=== PATIENT | male | born 1960 | race Hispanic/Latino ===

== ENCOUNTER 2023-08-11 21:54 | Emergency (ER) | payer MEDICARE, OTHER, SELFPAY ==
[2023-08-11 21:58] VITALS: BP 135/84
[2023-08-11 22:18] LABS: % Basophils 0.8 % (0-2); % Eosinophils 4.2 % (0-6); % Immature Granulocytes 0.4 % (0-0.5); % Monocytes 11.9 % (1.7-9.3); % Neutrophils 50.7 % (42.2-75.2); Absolute Eosinophils 0.2 10^3/uL (0-0.7); Absolute Lymphocytes 1.7 10^3/uL (1.2-3.4); Absolute Monocytes 0.6 10^3/uL (0.1-0.6); Absolute Neutrophils 2.6 10^3/uL (1.4-6.5); Hematocrit 40.5 % (39.0-52.0); Hemoglobin 14.2 g/dL (13.0-18.0); Mean Corp Hgb Conc. 35.1 g/dL (33.0-37.0); Mean Corpuscular Hgb 29.2 pg (27.0-31.0); Mean Corpuscular Volume 83.3 fL (80.0-94.0); Nucleated Red Blood Cells % 0 % (-); Platelet Count 196 10^3/uL (130-400); Red Blood Cell Count 4.86 10^6/uL (4.70-6.10); Red Cell Dist. Width 12.5 % (11.5-14.5); White Blood Cell Count 5.2 10^3/uL (4.8-10.8)
[2023-08-11 22:40] LABS: ALT (SGPT) 29 U/L (0-50); AST (SGOT) 30 U/L (17-59); Albumin 3.8 g/dl (3.5-5.0); Alkaline Phosphatase 141 U/L (38-126); Blood Urea Nitrogen 16 mg/dl (9-20); Calcium 9.2 mg/dl (8.4-10.2); Carbon Dioxide 23 mmol/L (22-30); Chloride 109 mmol/L (98-107); Glucose 89 mg/dl (70-99); Sodium 137 mmol/L (135-145); Total Bilirubin 0.7 mg/dl (0.2-1.3); Total Protein 6.7 g/dl (6.3-8.2); eGFR > 60.00
[2023-08-11 22:44] LABS: Troponin I < 0.012 ng/ml
--- NOTE | 2023-08-11 23:55 | ED.GENMED ---
History of Present Illness
General
Chief Complaint: Head Injury
Source: patient
Time Seen by Provider: 08/11/23 23:39
Travel History
Have you had any contact with someone who has COVID-19?: No
Do you have any symptoms of coronavirus? Fever > 100 degrees, chills, cough, shortness of breath, sore throat, loss of taste or smell, muscle aches, or headache?: No
History of Present Illness
History of Present Illness:
This patient is a 62-year-old male presents emergency department with complaints of pain at the top of his head ever since he fell about a month ago. Patient states that he 'falls all the time', and his most recent fall was about a month ago. He
says he hit the top of his head and since that time he gets pain at the top of his head that 'comes and goes' without specific provoking or relieving factors every day. He also notes that he is tired and sometimes lightheaded. He is requesting a
CAT scan of his head to make sure everything is okay. He also notes consistent central chest discomfort for at least a month if not longer, difficult to describe the quality, without radiation, exacerbating or relieving factors. He denies
associated diaphoresis, back pain, neck pain, numbness, tingling, focal weakness, dyspnea, abdominal pain, or other complaints. Patient is eating and drinking as usual without nausea or vomiting, clumsiness, visual changes, or other complaints.
Past History
Past History
ED Past Medical History: GERD, Hypercholesterolemia, Psychiatric (Anxiety), Other ('Overactive bladder', chronic chest pain, Ulcers, Hernia) and Other (BPH)
ED Past Surgical History: Appendectomy and Urological (Dilatation of the opening form he bladder)
Social History
Tobacco: Non-smoker
Alcohol: None
Drug: None
Personal:
Living: with family
Employment: Other (Noncontributory)
Family History
Family History: Other (Noncontributory)
Phy Exam
Physical Exam
Physical Exam:
GENERAL: Alert , in no apparent distress
EYE: pupils equal and reactive
NECK: Supple, no significant adenopathy.
ENT: o/p clr, mmm.
CARDIAC: Regular rate and rhythm .
LUNGS: Clear breath sounds bilaterally, no acute respiratory distress, no wheezes/rales/rhonchi
ABDOMEN: Soft, without focal tenderness, no r/g, no cvat
NEUROLOGICAL: Alert and oriented, no focal neuro deficits, [id number] normal, cranial nerves II through XII intact, motor 5 out of 5, sensory intact
SKIN: Warm and dry, skin intact.
MUSCULOSKELETAL: No edema, well perfused.
PSYCH: Normal and appropriate interaction.
Course
Orders/Labs/Results
Orders:
Orders
08/11/23 22:02
Electrocardiogram (*1) Urgent
Reason for Study: Chest Pain
EKG- Treatment ONCE
08/11/23 22:03
CT Head W/o Iv Contrast Urgent
Comment: dizziness, lightheaded, balance issues
Reason For Exam: head injury 1 month ago, continued headaches
08/11/23 22:13
Complete Blood Count/With Diff Urgent
Comprehensive Metabolic Panel Urgent
Troponin I Urgent
Abnormal Lab Results
08/11/23
22:13
Monocytes % 11.9 H %
(1.7-9.3)
Chloride 109 H mmol/L
(98-107)
Creatinine 0.6 L mg/dL
(0.7-1.3)
Alkaline Phosphatase 141 H U/L
(38-126)
08/11/23 22:13
08/11/23 22:13
Vital Signs
Initial and Last Documented VS:
Initial Vital Signs
Temp Pulse Resp BP Pulse Ox
97.6 F 79 18 135/84 97
08/11/23 21:58 08/11/23 21:58 08/11/23 21:58 08/11/23 21:58 08/11/23 21:58
Last Documented Vital Signs
Temp Pulse Resp BP Pulse Ox
97.9 F 64 18 127/79 99
08/12/23 00:38 08/12/23 00:30 08/12/23 00:30 08/12/23 00:26 08/12/23 00:30
*Critical Care Note
Total Time (30-74mins, 75-104mins- exclusive of procedures): Not Applicable
Update Note
Update Note:
Patient presents to the Emergency Department with ___headache lightheadedness and chest pain
Number and Complexity of Problems Addressed at the Encounter
� Chronic conditions affecting care:
� Acute Exacerbation and/or Progression of Chronic Illness:
� Differential Diagnosis includes: But not limited to intracranial injury, concussion, ACS, etc. etc.
Amount and/or Complexity of Data to be Reviewed and Analyzed
� I performed an independent evaluation of and my interpretation is:
EKG: Read by me, normal sinus rhythm, incomplete right bundle branch block, no acute ischemia
CT:VISION READ no acute intracranial abnl, no infarct, hemorrhage, of shift. Mild microangiopathy.
Xrays:
Laboratory Studies: Unremarkable
Other:
� Review of other/old records reveals: Discharge summary from January 2022 reviewed at that time patient had left-sided facial and arm numbness and stroke and TIA ruled out. He has noted chronic intermittent sharp chest pain of
unclear etiology, and a history of falls.
� Clinical information was obtained by an independent historian:
� Prescriptions/Medications Considered but not given:
� Further testing considered but not performed:
Risk of Complications and/or Morbidity or Mortality of Patient Management
� Social determinants of health affecting care:
� Discussion with other providers (PCP, Hospitalists, Consultants, etc):
� Escalation of care including admission/observation vs risk of discharge considered:Pt comfortable, in nad, neuor intact. given chronic cp, unremarkable ecg and trop, do not recommend repeat trop.
ED Attending Note
-
Portions of this chart may have been created with voice recognition software.� Occasional wrong word or��sound alike� substitutions may have occurred due to the inherent limitations of voice recognition software.
Discharge Plan
Departure
Patient with high blood pressure during this ER visit?: Yes
Condition: Good
Discharge Problem:
Head injury
Instructions: Head Injury in Adults (DC), BLOOD PRESSURE
Prescriptions:
No Action
omeprazole 40 MG capsule,delayed release(DR/EC)
40 mg PO DAILY
gabapentin 300 MG capsule
300 mg PO BID
aspirin 81 MG tablet,chewable
81 mg PO DAILY
atorvastatin 10 MG tablet
10 mg PO QPM
Patient Comments:
Patient unsure of dose.
cyclosporine [Restasis] 10 DROPS dropperette
3 drp BOTH EYES BID
duloxetine 60 MG capsule,delayed release(DR/EC)
60 mg PO DAILY
quetiapine 25 mg Tablet
25 mg PO DAILY PRN (Reason: anxiety)
Referrals:
Chinedu Jennings MD [Family Provider] - Follow up in 2-3 days
Activity Restrictions/Additional Instructions:
IF YOU DEVELOP TROUBLE BREATHING, FEVER,VOMITNG, NUMBNESS, WEAKNESS, CHANGE IN VISION, SEVERE HEADACHE, OR OTHER WORRISOME SIGNS, GO TO THE ER IMMEDIATELY!
Interventions
Interventions:
*Risk Screen - Suicide Last Done: 08/11/23 21:58
*General Assessment Last Done: 08/11/23 21:58
*Neglect/Abuse Screening Last Done: 08/11/23 21:58
ED- Fall Risk Assessment Last Done: 08/12/23 00:18
ED- Cardiac Assessment Last Done: 08/12/23 00:18
ED- Neurological Assessment Last Done: 08/12/23 00:18
ED-Skin Assessment Last Done: 08/12/23 00:18
Discharge Date and Time
Print Language: CZECH
[2023-08-12 00:26] VITALS: BP 127/79
[2023-08-12 00:27] VITALS: BMI 29.5
[2023-08-12 02:01] VITALS: BP 148/88
== END 2023-08-12 02:00 | disposition home or self-care (01) ==
LOC: EMR 21:54
PROVIDERS: Emergency Medicine; EMERGENCY PHYSICIAN Emergency Medicine; FAMILY PHYSICIAN Internal Medicine
DX: S09.90XA Unspecified injury of head, initial encounter (principal); R42 Dizziness and giddiness; R07.89 Other chest pain; W19.XXXA Unspecified fall, initial encounter; R03.0 Elevated blood-pressure reading, without diagnosis of hypertension; E78.00 Pure hypercholesterolemia, unspecified; F41.9 Anxiety disorder, unspecified; N32.81 Overactive bladder; K21.9 Gastro-esophageal reflux disease without esophagitis; G89.29 Other chronic pain; N40.0 Benign prostatic hyperplasia without lower urinary tract symptoms; R51.9 Headache, unspecified; I45.10 Unspecified right bundle-branch block; Z79.82 Long term (current) use of aspirin
CPT/HCPCS: 99284; 70450; 80053; 84484; 85025; 93005

== ENCOUNTER 2023-10-23 20:37 | Emergency (ER) | payer MEDICARE, OTHER, SELFPAY ==
[2023-10-23 20:38] VITALS: BP 147/89
[2023-10-23] MEDS: ADACEL 0.5 ML IM (22:29)
--- NOTE | 2023-10-23 22:59 | ED.SKININJ ---
HPI-Injury
General
Chief Complaint: Skin Surface Trauma
Source: patient
Exam Limitations: none
Time Seen by Provider: 10/23/23 21:59
Nursing documentation reviewed up to this point in time: agreed with
History of Present Illness-Injury
Is this injury a work related problem?: No
Is pt an associate of [facility], [place]?: No
Initial Injury comments:
Tripped and fell. Hit left side of face on railing. No LOC. Small lac to left cheek. Swelling to left upper lip. Injury occured just [employer]. No dental injury.
Past History
Past History
ED Past Medical History: GERD, Hypercholesterolemia, Psychiatric (Anxiety), Other ('Overactive bladder', chronic chest pain, Ulcers, Hernia) and Other (BPH)
ED Past Surgical History: Appendectomy and Urological (Dilatation of the opening form he bladder)
Social History
Tobacco: Non-smoker
Alcohol: None
Drug: None
Personal:
Living: with family
Employment: Other (Noncontributory)
Family History
Family History: Other (Noncontributory)
Review of Systems
Review of Systems
Allergies reviewed?: Yes
All Other Systems: ROS reviewed and negative except as documented in HPI and ROS
Constitutional: Reports no symptoms
EENT: Reports other (swelling to left upper lip. No dental injury)
Respiratory: Reports no symptoms
Cardiac: Reports no symptoms
ABD/GI: Reports no symptoms
Skin: Reports other (laceration to left cheek)
Neurological: Reports no symptoms
Psychiatric: Reports no symptoms
Skin Exam
Laceration
Left Cheek:
Length in cm: 2
Orientation: vertical
Type of Laceration: simple
Any active bleeding?: no active bleeding
Distal skin color and temperature: normal-warm & good color
Normal distal neurovascular exam: Yes
Range of motion: full
Phy Exam
General Physical Exam
General Presentation: well appearing and no apparent distress
General age: appears stated age
General Skin: warm and dry
General Habitus: normal
General Mental: alert
General Hydration: appears well hydrated
ENT Exam
ENT Exam: neck supple and other (swelling to left upper lip. No dental injury)
[place] Coma Scale
Eye Opening: Spontaneous
Verbal Response: Oriented
Motor Response: Obeys Commands
GCS Total Score: 15
Musculoskeletal Exam
Musculoskeletal Exam: full ROM and neuro vasc intact
Skin Exam
Skin Exam: normal color, warm/dry and no rash
Psychiatric Exam
Psychiatric Exam: normal mood/affect
Course
Orders/Labs/Results
Orders:
Orders
10/23/23 22:20
Tetanus/Diphth/Acelpertussis [Adacel] 0.5 ml IM .ONCE ONE
Vital Signs
Initial and Last Documented VS:
Initial Vital Signs
Temp Pulse Resp BP Pulse Ox
98.2 F 79 18 147/89 96
10/23/23 20:38 10/23/23 20:38 10/23/23 20:38 10/23/23 20:38 10/23/23 20:38
Last Documented Vital Signs
Temp Pulse Resp BP Pulse Ox
98.2 F 79 18 147/89 96
10/23/23 20:38 10/23/23 20:38 10/23/23 20:38 10/23/23 20:38 10/23/23 20:38
Procedures
Laceration Closure
Left Cheek:
Status of Wound: clean
Description of Wound Edges: sharp
Preparation: cleaned with saline
Anesthesia: 1% Lidocaine with epi
Revision/Debridement: routine- no revision
Wound exploration: explored to base- no FB
Type of Closure: single layer closure
Skin Closure Material: 6-0 prolene
*Critical Care Note
Total Time (30-74mins, 75-104mins- exclusive of procedures): Not Applicable
ED Attending Note
-
Portions of this chart may have been created with voice recognition software.� Occasional wrong word or��sound alike� substitutions may have occurred due to the inherent limitations of voice recognition software.
Discharge Plan
Departure
Patient Disposition: Home (Routine Discharge)
Date of Disposition: 10/23/23
Time of Disposition: 22:21
Patient with high blood pressure during this ER visit?: No
Condition: Good
Covid-19: Not Applicable
Discharge Problem:
Face lacerations
Instructions: Laceration Repair With Stitches (DC), Wound Inside The Mouth
Prescriptions:
No Action
omeprazole 40 MG capsule,delayed release(DR/EC)
40 mg PO DAILY
gabapentin 300 MG capsule
300 mg PO BID
aspirin 81 MG tablet,chewable
81 mg PO DAILY
atorvastatin 10 MG tablet
10 mg PO QPM
Patient Comments:
Patient unsure of dose.
cyclosporine [Restasis] 10 DROPS dropperette
3 drp BOTH EYES BID
duloxetine 60 MG capsule,delayed release(DR/EC)
60 mg PO DAILY
quetiapine 25 mg Tablet
25 mg PO DAILY PRN (Reason: anxiety)
Referrals:
UNKNOWN - PT NOT,INTERVIEWE [Family Provider] -
Activity Restrictions/Additional Instructions:
Sutures can be removed in 5-7 days by your family doctor
Interventions
Interventions:
*Risk Screen - Suicide Last Done: 10/23/23 20:38
*General Assessment Last Done: 10/23/23 20:38
*Neglect/Abuse Screening Last Done: 10/23/23 22:46
ED- Fall Risk Assessment Last Done: 10/23/23 22:46
*Nursing Disposition Last Done: 10/23/23 22:48
ED-Skin Assessment Last Done: 10/23/23 22:46
Discharge Date and Time
Discharge Date/Time: 10/23/23 22:48
Print Language: ANGOLAN
== END 2023-10-23 22:48 | disposition home or self-care (01) ==
LOC: EMR 20:37
PROVIDERS: EMERGENCY PHYSICIAN Emergency Medicine
DX: S01.412A Laceration without foreign body of left cheek and temporomandibular area, initial encounter (principal); S09.8XXA Other specified injuries of head, initial encounter; W17.89XA Other fall from one level to another, initial encounter; Z23 Encounter for immunization; K21.9 Gastro-esophageal reflux disease without esophagitis; F41.9 Anxiety disorder, unspecified; E78.00 Pure hypercholesterolemia, unspecified; N32.81 Overactive bladder; G89.29 Other chronic pain; R73.03 Prediabetes; R07.89 Other chest pain; N40.0 Benign prostatic hyperplasia without lower urinary tract symptoms; I10 Essential (primary) hypertension; M19.90 Unspecified osteoarthritis, unspecified site; F32.A Depression, unspecified
CPT/HCPCS: 99282; 12011; 90471; 90715

== ENCOUNTER → 2024-01-11 07:12 | Outpatient (REF) | payer MEDICARE, OTHER, SELFPAY | LOC: RCS 07:12 | PROVIDERS: ATTENDING PHYSICIAN Internal Medicine Cardiovascular Disease; FAMILY PHYSICIAN Internal Medicine | DX: R07.89 Other chest pain (principal); R07.9 Chest pain, unspecified; I45.10 Unspecified right bundle-branch block | CPT/HCPCS: 93306 ==

== ENCOUNTER → 2024-01-13 11:34 | Outpatient (REF) | payer MEDICARE, OTHER, SELFPAY | LOC: DHCBC/DCA 11:34 | PROVIDERS: ATTENDING PHYSICIAN Internal Medicine Cardiovascular Disease; FAMILY PHYSICIAN Internal Medicine | DX: R07.89 Other chest pain (principal); R07.9 Chest pain, unspecified; I45.10 Unspecified right bundle-branch block | CPT/HCPCS: 78452; 93017; A9500 ==

== ENCOUNTER 2024-07-12 13:55 | Emergency (ER) | payer MEDICARE, OTHER, SELFPAY ==
[2024-07-12 14:05] VITALS: BP 122/81
[2024-07-12 14:39] LABS: % Basophils 1.4 % (0-2); % Eosinophils 5.1 % (0-6); % Immature Granulocytes 0.2 % (0-0.5); % Lymphocytes 25.9 % (20.5-51.1); % Monocytes 6.7 % (1.7-9.3); % Neutrophils 60.7 % (42.2-75.2); Absolute Basophils 0.1 10^3/uL (0-0.2); Absolute Eosinophils 0.3 10^3/uL (0-0.7); Absolute Lymphocytes 1.3 10^3/uL (1.2-3.4); Absolute Monocytes 0.3 10^3/uL (0.1-0.6); Absolute Neutrophils 3.1 10^3/uL (1.4-6.5); Hematocrit 40.8 % (39.0-52.0); Hemoglobin 14.3 g/dL (13.0-18.0); Mean Corpuscular Hgb 29.5 pg (27.0-31.0); Mean Corpuscular Volume 84.3 fL (80.0-94.0); Mean Platelet Volume 9.3 fL (7.4-10.4); Nucleated Red Blood Cells % 0 % (-); Platelet Count 230 10^3/uL (130-400); Red Blood Cell Count 4.84 10^6/uL (4.70-6.10); Red Cell Dist. Width 12.2 % (11.5-14.5); White Blood Cell Count 5.1 10^3/uL (4.8-10.8)
[2024-07-12 14:51] LABS: ALT (SGPT) 29 U/L (0-50); AST (SGOT) 26 U/L (17-59); Albumin 4.4 g/dl (3.5-5.0); Alkaline Phosphatase 122 U/L (38-126); Blood Urea Nitrogen 18 mg/dl (9-20); Calcium 9.5 mg/dl (8.4-10.2); Carbon Dioxide 25 mmol/L (22-30); Chloride 106 mmol/L (98-107); Glucose 110 mg/dl (70-99); Potassium 4.2 mmol/L (3.5-5.1); Sodium 139 mmol/L (135-145); eGFR > 60.00
[2024-07-12 15:01] LABS: Troponin I < 0.012 ng/ml
--- NOTE | 2024-07-12 18:07 | ED.GENMED ---
History of Present Illness
General
Chief Complaint: Chest Pain
Time Seen by Provider: 07/12/24 17:46
History of Present Illness
History of Present Illness:
Patient presents to the emergency department with sharp chest pain. Symptoms have been constant for the past week. Pain is not exertional. Associated with some shortness of breath. No leg swelling. No history of DVT or PE. Does note that he
feels very fatigued and generally weak. Denies fevers or chills.
Past History
Past History
ED Past Medical History: GERD, Hypercholesterolemia, Psychiatric (Anxiety), Other ('Overactive bladder', chronic chest pain, Ulcers, Hernia) and Other (BPH)
ED Past Surgical History: Appendectomy and Urological (Dilatation of the opening form he bladder)
Social History
Tobacco: Non-smoker
Alcohol: None
Drug: None
Personal:
Living: with family
Employment: Other (Noncontributory)
Family History
Family History: Other (Noncontributory)
Phy Exam
Physical Exam
Physical Exam:
GENERAL APPEARANCE: NAD, well developed/ well nourished
EYES lids/conjunctiva normal
EARS/NOSE/THROAT Mucous membranes moist, uvula midline without oral pharyngeal erythema, exudate or swelling
HEAD/NECK normocephalic atraumatic, neck is supple.
RESPIRATORY respiratory effort normal, speaks in full sentences, no accessory muscle use. Lungs clear to auscultation without rhonchi, wheezes, rales
CARDIAC Regular rate and rhythm, no edema. There are some reproducibility to his centralized chest pain
ABDOMINAL Soft, ND/NT. No pulsatile masses on exam, rebound tenderness, Chanel sign or pain over Mcburney's point.
MUSCLES/EXTREMITIES No abnormal range of motion, no swelling.
SKIN Warm, pink and dry. No rashes
NEUROLOGICAL Speech is clear and appropriate. Normal level of consciousness. 5/5 strength in all extremities.
PSYCH Normal mood and affect. Judgement/competence is appropriate
Scores
Heart Score for Chest Pain Patients
STEMI patient?: No
History: Slightly or Non-Suspicious
ECG: Nonspecific Repolarization
Age: >45 - <65 years
Risk Factors: 1 or 2 Risk Factors
Troponin: </= Normal Limit
Heart Score for Chest Pain Patients: 3
Heart Score Risk: 2.5% MACE over next 6 weeks
Course
Orders/Labs/Results
Orders:
Orders
07/12/24 14:01
Electrocardiogram (*1) Urgent
Reason for Study: Chest Pain
EKG- Treatment ONCE
07/12/24 14:12
Complete Blood Count/With Diff Urgent
Comprehensive Metabolic Panel Urgent
Troponin I Urgent
07/12/24 18:07
CR Chest - 2 Views Urgent
Comment:
Reason For Exam: cp
07/12/24 18:23
D-Dimer Urgent
Abnormal Lab Results
07/12/24
14:12
Glucose 110 H mg/dl
(70-99)
07/12/24 14:12
07/12/24 14:12
Vital Signs
Initial and Last Documented VS:
Initial Vital Signs
Temp Pulse Resp BP Pulse Ox
98.7 F 74 18 122/81 97
07/12/24 14:05 07/12/24 14:05 07/12/24 14:05 07/12/24 14:05 07/12/24 14:05
Last Documented Vital Signs
Temp Pulse Resp BP Pulse Ox
98.7 F 62 18 122/81 97
07/12/24 14:05 07/12/24 18:25 07/12/24 18:54 07/12/24 14:05 07/12/24 18:25
*Critical Care Note
Total Time (30-74mins, 75-104mins- exclusive of procedures): Not Applicable
ED Attending Note
ED Attending Note
ED Attending Note:
Patient presents with atypical chest pain for 1 week. He is well-appearing generally on exam. His vital signs are reassuring. Initial EKG without any acute ischemic changes. Initial troponin is negative. Will check D-dimer - he is low risk by
Wells criteria. Low risk by heart score. Plan for delta troponin. Will obtain chest x-ray. Will continue to monitor patient and reassess.
-
Portions of this chart may have been created with voice recognition software.� Occasional wrong word or��sound alike� substitutions may have occurred due to the inherent limitations of voice recognition software.
Discharge Plan
Departure
Patient Disposition: Home (Routine Discharge)
Date of Disposition: 07/12/24
Time of Disposition: 20:13
Patient with high blood pressure during this ER visit?: No
Discharge Problem:
Chest pain
Instructions: Chest Pain PCP Follow Up
Prescriptions:
No Action
omeprazole 40 MG capsule,delayed release(DR/EC)
40 mg PO DAILY
gabapentin 300 MG capsule
300 mg PO BID
aspirin 81 MG tablet,chewable
81 mg PO DAILY
atorvastatin 10 MG tablet
10 mg PO QPM
Patient Comments:
Patient unsure of dose.
cyclosporine [Restasis] 10 DROPS dropperette
3 drp BOTH EYES BID
duloxetine 60 MG capsule,delayed release(DR/EC)
60 mg PO DAILY
quetiapine 25 mg Tablet
25 mg PO DAILY PRN (Reason: anxiety)
Referrals:
UNKNOWN,NO INTERVIEW [Family Provider] -
Activity Restrictions/Additional Instructions:
please follow up with your primary doctor in the next few days
return to ER with worsening symptoms
Interventions
Interventions:
*Risk Screen - Suicide Last Done: 07/12/24 14:05
*General Assessment Last Done: 07/12/24 14:05
*Neglect/Abuse Screening Last Done: 07/12/24 14:05
*ED- Fall Risk Assessment Last Done: 07/12/24 18:26
ED- Cardiac Assessment Last Done: 07/12/24 18:26
Discharge Date and Time
Print Language: THAI
[2024-07-12 18:27] VITALS: BMI 27.6
[2024-07-12 19:00] VITALS: BP 129/86
[2024-07-12 19:17] LABS: D-Dimer < 0.27 ug/mlFEU (0.00-0.50)
[2024-07-12 20:00] VITALS: BP 137/78
== END 2024-07-12 20:22 | disposition home or self-care (01) ==
LOC: EMR 13:55
PROVIDERS: EMERGENCY PHYSICIAN Emergency Medicine
DX: R07.89 Other chest pain (principal); E78.00 Pure hypercholesterolemia, unspecified; K21.9 Gastro-esophageal reflux disease without esophagitis
CPT/HCPCS: 99284; 71046; 80053; 84484; 85025; 85379; 93005

== ENCOUNTER 2024-12-18 20:57 | Emergency (ER) | payer MEDICARE, OTHER, SELFPAY ==
[2024-12-18 21:04] VITALS: BP 152/84
[2024-12-18 21:16] LABS: Hematocrit 46.1 % (39.0-52.0); Hemoglobin 15.3 g/dL (13.0-18.0); Mean Corp Hgb Conc. 33.2 g/dL (33.0-37.0); Mean Corpuscular Volume 86.2 fL (80.0-94.0); Nucleated Red Blood Cells % 0 % (-); Platelet Count 197 10^3/uL (130-400); Red Cell Dist. Width 12.6 % (11.5-14.5)
[2024-12-18 21:38] LABS: ALT (SGPT) 30 U/L (0-50); AST (SGOT) 27 U/L (17-59); Albumin 4.4 g/dl (3.5-5.0); Alkaline Phosphatase 126 U/L (38-126); Blood Urea Nitrogen 17 mg/dl (9-20); Calcium 9.8 mg/dl (8.4-10.2); Carbon Dioxide 29 mmol/L (22-30); Chloride 104 mmol/L (98-107); Glucose 118 mg/dl (70-99); Potassium 3.7 mmol/L (3.5-5.1); Sodium 139 mmol/L (135-145); Total Protein 7.3 g/dl (6.3-8.2); eGFR > 60.00
[2024-12-18 21:40] LABS: Troponin I < 0.012 ng/ml
[2024-12-18 22:27] VITALS: BMI 31.0
[2024-12-18 22:28] VITALS: BP 132/78
[2024-12-18 23:12] VITALS: BP 115/72
[2024-12-19] VITALS: BP 103/76
--- NOTE | 2024-12-19 00:25 | ED.GENMED ---
History of Present Illness
General
Chief Complaint: Chest Pain
Source: patient
Exam Limitations: none
Time Seen by Provider: 12/18/24 22:59
Nursing documentation reviewed up to this point in time: agreed with except (Patient reports numbness throughout the entire face both right and left side)
History of Present Illness
History of Present Illness:
Patient is a 64-year-old male who presents to the ER complaining of constant midsternal chest pain since Tuesday for the past 3 days. He denies any radiation of pain .he also has had numbness over his entire face. He denies any associated
shortness of breath. He denies any associated nausea or vomiting. He denies any upper or lower extremity weakness. He does complain of a headache. Denies any blurry vision. Triage note states the patient has numbness to the right side of his
face however patient reports he feels numbness and tingling all throughout his face ,both sides right and left for the past several days.
He denies any recent illness fever chills cough. He denies any injury or lifting. he is followed by Dr. Cedeno for chest pain history in the past.
Patient had a prior echo in 2023 which I reviewed and is unremarkable. Stress test done in 2019 unremarkable
He does not smoke.
Past History
Past History
ED Past Medical History: GERD, Hypercholesterolemia, Psychiatric (Anxiety), Other ('Overactive bladder', chronic chest pain, Ulcers, Hernia) and Other (BPH)
ED Past Surgical History: Appendectomy and Urological (Dilatation of the opening form he bladder)
Social History
Tobacco: Non-smoker
Alcohol: None
Drug: None
Personal:
Living: with family
Employment: Other (Noncontributory)
Family History
Family History: Other (Noncontributory)
Phy Exam
General Physical Exam
General Presentation: no apparent distress
General age: appears stated age
General Skin: warm and dry
General Habitus: normal
General Mental: alert
General Hydration: appears well hydrated
Cardiovascular Exam
Cardiovascular Exam: regular rate/rhythm, no murmur and normal peripheral pulses
Pulmonary Exam
Pulmonary Exam: lungs clear and no respiratory distress
Neurological Exam
Neurological Exam: alert, oriented x3, no motor deficits, no sensory deficits and other (Normal sensation to face bilaterally on exam)
Musculoskeletal Exam
Musculoskeletal Exam: full ROM
Skin Exam
Skin Exam: normal color and warm/dry
Psychiatric Exam
Psychiatric Exam: normal mood/affect
Scores
Heart Score for Chest Pain Patients
STEMI patient?: Not applicable
Course
Orders/Labs/Results
Orders:
Orders
12/18/24 20:57
ECG [Electrocardiogram (*1)] Urgent
Reason for Study: Chest Pain
EKG- Treatment ONCE
12/18/24 21:10
Complete Blood Count/With Diff Urgent
Comprehensive Metabolic Panel Urgent
Troponin I Urgent
12/18/24 22:38
CXR2 [CR Chest - 2 Views ] Urgent
Comment:
Reason For Exam: chest pain
Abnormal Lab Results
12/18/24
21:10
Monocytes % 10.1 H %
(1.7-9.3)
Glucose 118 H mg/dl
(70-99)
12/18/24 21:10
12/18/24 21:10
Vital Signs
Initial and Last Documented VS:
Initial Vital Signs
Temp Pulse Resp BP Pulse Ox
98.4 F 68 16 152/84 98
12/18/24 21:04 12/18/24 21:04 12/18/24 21:04 12/18/24 21:04 12/18/24 21:04
Last Documented Vital Signs
Temp Pulse Resp BP Pulse Ox
98.5 F 62 15 103/76 97
12/18/24 22:28 12/19/24 00:15 12/19/24 00:15 12/19/24 00:00 12/19/24 00:27
[employer] consulted with Physician
[employer] Supervisor consulted with physician?: Yes
Name of Physician Consulted: luciano
MDM/Problems Addressed
MDM/Problems Addressed:
Patient is a 64-year-old male with past medical history of chest pain hypertension hyperlipidemia anxiety,TIA presents for evaluation of constant chest pain for the past 4 days not associate with shortness of breath. Cardiac troponin negative no
acute findings on EKG.
In addition patient complains of numbness throughout his entire face with mild headache however no neurological deficits. He denies any upper or lower extremity numbness tingling/ weakness he is in no acute distress. Not consistent with stroke .
triage note that patient complained of numbness to the right side of face however patient complains of bilateral facial numbness. He is well-appearing here in no acute distress.
He has been seen here previously several times for chest pain.
Nml prior echo neg stress in 2019.
case d/c w/ ED physician, stable for d/c home.
*Radiology
Radiology exam reviewed: preliminary read by ED provider
*Pulse Oximetry
SaO2: 97
Oxygen Mode of Delivery: Room air
Patient hypoxic: no
*EKG
Interpreted by ED Provider?: Yes
Comparison EKG: no changes
Heart Rate: 66
Rate: normal
Rhythm: sinus
Ischemia: no ischemia
*Critical Care Note
Total Time (30-74mins, 75-104mins- exclusive of procedures): Not Applicable
Data Reviewed
Review of Other/Old Records Reveals: Labs, Discharge Summary and Other (Prior ER record)
Source: patient
ED Attending Note
-
Portions of this chart may have been created with voice recognition software.� Occasional wrong word or��sound alike� substitutions may have occurred due to the inherent limitations of voice recognition software.
Discharge Plan
Departure
Patient Disposition: Home (Routine Discharge)
Date of Disposition: 12/19/24
Time of Disposition: 01:09
Patient with high blood pressure during this ER visit?: Yes
Condition: Fair
Covid-19: Not Applicable
Discharge Problem:
Chest pain
Instructions: Chest Pain CBC Follow Up
Prescriptions:
No Action
omeprazole 40 MG capsule,delayed release(DR/EC)
40 mg PO DAILY
gabapentin 300 MG capsule
300 mg PO BID
aspirin 81 MG tablet,chewable
81 mg PO DAILY
atorvastatin 10 MG tablet
10 mg PO QPM
Patient Comments:
Patient unsure of dose.
cyclosporine [Restasis] 10 DROPS dropperette
3 drp BOTH EYES BID
duloxetine 60 MG capsule,delayed release(DR/EC)
60 mg PO DAILY
quetiapine 25 mg Tablet
25 mg PO DAILY PRN (Reason: anxiety)
Referrals:
Tej Cedeno MD [Active, Cardiology]
Chinedu Jennings MD [Family Provider, Internal Medicine]
Activity Restrictions/Additional Instructions:
You were placed on chest pain hotline which means you should receive a phone call from the cardiology office in the next 1 to 2 days. However if you do not please give the office a call to schedule an appointment. Return if any worsening of
symptoms
Interventions
Interventions:
*Risk Screen - Suicide Last Done: 12/18/24 21:04
*General Assessment Last Done: 12/18/24 22:30
*Neglect/Abuse Screening Last Done: 12/18/24 21:04
*ED- Fall Risk Assessment Last Done: 12/18/24 22:30
*ED COVID-19 Vaccine History Last Done: 12/18/24 22:30
*ED Influenza Vaccine History Last Done: 12/18/24 22:30
ED- Cardiac Assessment Last Done: 12/18/24 22:32
Discharge Date and Time
Print Language: YI
[2024-12-19 01:00] VITALS: BP 117/80
== END 2024-12-19 01:43 | disposition home or self-care (01) ==
LOC: EMR 20:57
PROVIDERS: EMERGENCY PHYSICIAN Emergency Medicine; FAMILY PHYSICIAN Internal Medicine
DX: R07.89 Other chest pain (principal); G89.29 Other chronic pain; E78.00 Pure hypercholesterolemia, unspecified; I10 Essential (primary) hypertension; Z90.49 Acquired absence of other specified parts of digestive tract; Z86.73 Personal history of transient ischemic attack (TIA), and cerebral infarction without residual deficits
CPT/HCPCS: 99285; 71046; 80053; 84484; 85025; 93005

== ENCOUNTER → 2024-12-25 13:00 | Outpatient (REF) | payer MEDICARE, OTHER, SELFPAY | LOC: RCS 13:00 | PROVIDERS: ATTENDING PHYSICIAN Nurse Practitioner; FAMILY PHYSICIAN Internal Medicine | DX: R42 Dizziness and giddiness (principal) | CPT/HCPCS: 93225; 93226 ==

== ENCOUNTER → 2024-12-28 16:07 | Outpatient (REF) | payer MEDICARE, OTHER, SELFPAY | LOC: HWRCS 16:07 | PROVIDERS: ATTENDING PHYSICIAN Nurse Practitioner; FAMILY PHYSICIAN Internal Medicine | DX: R07.89 Other chest pain (principal); R06.02 Shortness of breath | CPT/HCPCS: 93306 ==